=== PATIENT | female | born 1950 | race Caucasian/White ===

== ENCOUNTER 2022-09-27 10:18 | Outpatient (CLI) | payer MEDICARE, SELFPAY ==
--- NOTE | 2022-09-27 10:28 | ECHO_ITS ---
Patient Info Name: Arabella Jimenez Age: 71 years : 1950 Gender: Female Ht: 64 in Wt: 165 lbs BSA: 1.86 m2 HR: 76 bpm BP: 163 / 87 mmHg Heart Rhythm: Sinus Rhythm Technical Quality: Good Exam Date: 09/27/2022 10:31 AM Exam Location: [facility] Patient Status: Outpatient Admit Date: 09/27/2022 Staff Ordering Physician: Boy Nicholas MD [employer] Worker: Betsey Frances RDCS Attending Provider: Boy Nicholas MD Exam Type: CA echo doppler color flow Study Info Indications - HTN Complete two-dimensional, color flow and Doppler transthoracic echocardiogram is performed. Summary 1. Complete two-dimensional, color flow and Doppler transthoracic echocardiogram is performed. 2. Left ventricular chamber dimension is normal. 3. Left ventricular systolic function is normal, estimated at 60-65%. 4. The left ventricular diastolic function is grade I diastolic dysfunction. 5. E/e' 9 is minimally elevated. 6. There is trace tricuspid valve regurgitation. 7. No pulmonary hypertension, estimated pulmonary arterial systolic pressure is 33 mmHg. Left Ventricle E/e' 9 is minimally elevated. Left ventricular chamber dimension is normal. Left ventricular systolic function is normal, estimated at 60-65%. The left ventricular diastolic function is grade I diastolic dysfunction. Right Ventricle Right ventricular systolic function is normal and with normal TAPSE 2.5 cm. Right ventricular chamber dimension is normal. Left Atria Left atrial chamber dimension is normal. Right Atria Right atrial chamber dimension is normal. Aortic Valve The aortic valve is trileaflet. There is no aortic valve stenosis. There is no aortic valve regurgitation. Pulmonic Valve There is no pulmonic regurgitation. Mitral Valve There is no mitral valve stenosis. There is no mitral valve regurgitation. Tricuspid Valve There is trace tricuspid valve regurgitation. No pulmonary hypertension, estimated pulmonary arterial systolic pressure is 33 mmHg. Pericardium/Pleural There is no pericardial effusion. Inferior Vena Cava Normal inferior vena cava with >50% collapse upon inspiration consistent with normal right atrial pressure, 5 mmHg. Aorta The aortic root size at the sinus of Valsalva is normal. Left Ventricular Outflow Tract Name Value Normal LVOT 2D LVOT Diameter 1.9 cm LVOT Doppler LVOT Peak Velocity 102 cm/s LVOT Peak Gradient 4 mmHg LVOT Mean Gradient 2 mmHg LVOT VTI 24 cm LVOT VTI/AV VTI Ratio 0.8 LVOT Stroke Volume 65 ml Pulmonic Valve Name Value Normal RVOT Doppler RVOT Peak Gradient 2 mmHg PV Doppler PV Peak Velocity 79 cm/s PV Peak Gradient 2 mmHg
== END 2022-09-27 10:19 | disposition home or self-care (01) ==
LOC: CHSIMG 10:23
PROVIDERS: PCP Internal Medicine; Visit Provider Internal Medicine
DX: I10 Essential (primary) hypertension (principal)
CPT/HCPCS: 93306

== ENCOUNTER 2023-08-16 12:44 | Outpatient (CLI) | payer MEDICARE, SELFPAY ==
--- NOTE | ~2023-08-16 | XR_ITS ---
Left Knee Technique: AP, lateral, and sunrise views were obtained. Clinical History: Pain Findings: No fracture or dislocation is seen. There is probable mild medial compartment narrowing wit h mild to moderate degenerative spurring of the patellofemoral and medial compartments.. Soft tissues are unremarkable. No joint effusion is seen. Impression: Degenerative change, as above. Reviewed, dictated and finalized at location M. Impression: Degenerative change, as above.
== END 2023-08-16 12:45 | disposition home or self-care (01) ==
LOC: CHSIMG 12:47
PROVIDERS: PCP Internal Medicine; Visit Provider Internal Medicine
DX: M25.562 Pain in left knee (principal)
CPT/HCPCS: 73562